=== PATIENT | female | born 1935 | race Caucasian/White ===

== ENCOUNTER 2017-09-15 21:38 | Emergency (ER) | payer OTHER, BC, MEDICARE ==
[~2017-09-15] VITALS: Ht 172.7 cm; Wt 77.1 kg
[2017-09-15 21:52] VITALS: BP 176/76
--- NOTE | 2017-09-15 22:49 | RADIOLOGY REPORT ---
EXAMINATION: XR ANKLE, RIGHT CLINICAL INFORMATION: Fall. Pain. Rule out fracture. COMPARISON: None TECHNIQUE: AP, lateral, and mortise views of the right ankle. FINDINGS: There is lateral ankle soft tissue swelling. The ankle mortise is intact. There is a transverse fracture across the base of the fifth metatarsal bone partially visualized. No dislocation is seen. No ankle joint effusion is visible. IMPRESSION: Lateral ankle soft tissue swelling. Transverse fracture across the base of the fifth metatarsal bone partially visualized.
--- NOTE | 2017-09-15 22:58 | RADIOLOGY REPORT ---
EXAMINATION: XR FOOT, RIGHT CLINICAL INFORMATION: Fall. Pain. COMPARISON: None TECHNIQUE: 3 views of the right foot. FINDINGS: There is a mildly displaced transverse fracture through the proximal fifth metatarsal. The fracture is approximately 1 cm from the tip of the metatarsal area fracture extends to the metatarsal cuboid articulation. There is marked joint space narrowing with prominent bone spur and some remodeling of the first metatarsal tarsal joint. There is a small plantar calcaneal spur. IMPRESSION: Mildly displaced transverse fracture through the proximal fifth metatarsal.
--- NOTE | 2017-09-15 23:01 | RADIOLOGY REPORT ---
EXAMINATION: XR KNEE, RIGHT CLINICAL INFORMATION: Fall. Pain. COMPARISON: None TECHNIQUE: Four views of the right knee. FINDINGS: There is no fracture. No dislocation. No joint effusion. There is joint narrowing of the medial and lateral femoral tibial joint with small spurs at the articular margins of the femur. There is also small spurs of the patella at the lateral femoral joint. There is chondrocalcinosis of the medial and lateral meniscus. IMPRESSION: 1. No acute abnormality. 2. Degenerative joint disease. 3. Chondrocalcinosis.
--- NOTE | 2017-09-15 23:40 | ED MVC/FALL/TRAUMA COMPLAINT ---
History of Present Illness General Chief Complaint: Fall Stated Complaint: PT HAD A FALL ,KNEE,ANKLE, FOOT ON THE RT SIDE Source: patient, old records Exam Limitations: no limitations Vital Signs & Intake/Output Vital Signs & Intake/Output Vital Signs Date Time Temp Pulse Resp B/P B/P Pulse O2 O2 Flow FiO2 Mean Ox Delivery Rate 09/16 2151 97.6 69 18 176/76 97 Room Air ED Intake and Output 09/16 0000 09/15 1200 Intake Total Output Total Balance Patient 170 lb Weight Allergies Coded Allergies: No Known Allergies (09/15/17) Reconcile Medications Oxycodone HCl/Acetaminophen (Percocet 5-325 MG Tablet) 5 MG-325 MG TABLET 1 TAB PO BID FX Triage Note: PT TO TRIAGE S/P MISSING A STEP, TWISTING R ANKLE AND FALLING ONTO R KNEE. C/O R ANKLE, KNEE AND FOOT PAIN. +SWELLING NOTED TO R ANKLE. PT HAS ECCHYMOSIS TO L CHEEK, STATES FROM MECHANICAL FALL 1 WEEK AGO. Triage Nurses Notes Reviewed? yes Onset: Abrupt Duration: hour(s): (2), constant Timing: recent history Severity: moderate Severity Numbers: 8 Injuries/Fall Location: lower extremity Method of Injury: fall Loss of Consciousness: no loss of consciousness Modifying Factors: Worsens With: movement, palpation. Associated Symptoms: DENIES HPI: 82-year-old female on Coumadin for PE hypertension diabetes presents with family for evaluation after she missed a step while walking this evening twisting her right ankle. She now presents complaining of pain to the lateral foot and lateral right knee. She denies hitting her head there is no loss of consciousness. She is not taken anything for her symptoms. The patient had a mechanical fall last week as well at which time she sustained injury to her face and has healing bruising. She denies any prodromal dizziness light tenderness prior to the fall this evening pain is worse with weightbearing and palpation (Thad Celaya) Past History Travel History Traveled to [place] past 21 day No Medical History Any Pertinent Medical History? 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 No (Thad Celaya) Review of Systems Review of Systems Constitutional: Reports: no symptoms, see HPI. Comments Review of systems: See HPI, All other systems negative. Constitutional, no chills no fever, HEENT: no sore throat no congestion Cardiovascular: No chest pain , no palpitation Skin: no rashes, no change in skin Respiratory: No dyspnea no cough no sputum GI: No nausea no vomiting, Muscle skeletal: SEE HPI Neurologic: , no headache Heme/endocrine: No bruising (Thad Celaya) Physical Exam Physical Exam General Appearance: well developed/nourished, no apparent distress, alert Comments: Well-developed well-nourished patient in no apparent distress. HEENT: Healing ecchymosis noted to the inferior left orbit from previous injury, extraocular motion intact Neck: Supple, FROM Back: FROM Respiratory: . No respiratory distress. Patient speaking in full complete sentences. Breath sounds clear to auscultation bilaterally: NO W/R/R Upper Extremities: full range of motion Hip/Pelvis: Atraumatic/Stable. FROM. No pain with pelvic compression Knee: Atraumatic/stable. FROM. No joint swelling, no effusion. No laxity. Negative jorge l/anterior drawer test. pain with ROM Leg: Atraumatic. Nontender. No edema, 5 out of 5 strength in the lower extremity, normal dorsiflexion of great toe bilaterally, gross sensation is intact, patellar tendon reflex 2+ bilaterally. Ankle/Foot: Tenderness of patient over the lateral aspect of the right foot, positive swelling to the foot the ankles atraumatic, Skin intact. Limited range of motion secondary to pain No laxity on exam Pulses: Normal/equal DP/PT pulses bilaterally. Brisk cap refill Neuro: awake, alert, and oriented to person, place and time. There were no obvious focal neurologic abnormalities. Skin: Warm & dry;No appreciable rash on exposed skin Psych: Mood affect normal, normal memory normal judgment. Core Measures ACS in differential dx? No CVA/TIA Diagnosis No Sepsis Present: No Sepsis Focused Exam Completed? No (Thad eClaya) Progress Differential Diagnosis: C/T/L spine injury, ext injury, spinal cord injury, FRACTURE SPRAIN CONTUSION Plan of Care: Orders Procedure Date/time Status Durable Medical Equipment 09/15 2355 Active I discussed with the patient at length all of their results. I had an extensive conversation regarding need for close follow up with their orthopedist this week as well as return precautions. I answered all of their questions, they feel comfortable with the plan and follow-up care. I discussed with the patient/family the medications that they will receive. I gave them signs and symptoms that could indicate an adverse reaction. I have advised them to limit their activities until they can see how they respond to the medication. Diagnostic Imaging: Viewed by Me: Radiology Read. Discussed w/RAD: Radiology Read. (Thad Celaya) Departure Departure Time of Disposition: 2355 Disposition: HOME OR SELF CARE Condition: Stable Clinical Impression Primary Impression: Fracture of 5th metatarsal Referrals: Unknown (PCP/Family) Additional Instructions: Follow-up with your orthopedist when you return home. Pneumatic boot as discussed. Percocet for breakthrough pain- use caution this will make you drowsy. rest, ice, keep leg elevated. return with any concerns Departure Forms: Customer Survey General Discharge Information Prescriptions: Current Visit Scripts Oxycodone HCl/Acetaminophen (Percocet 5-325 MG Tablet) 1 TAB PO BID #15 TAB (Thad Celaya) PA/SERVICE CENTER ASSISTANT Co-Sign Statement Statement: ED Attending supervision documentation- [X] I saw and evaluated the patient. I have also reviewed all the pertinent lab results and diagnostic results. I agree with the findings and the plan of care as documented in the PA's/SERVICE CENTER ASSISTANT's documentation. [X] I have reviewed the ED Record and agree with the PA's/SERVICE CENTER ASSISTANT's documentation. [] Additions or exceptions (if any) to the PAs/SERVICE CENTER ASSISTANT's note and plan are summarized below: [] (Betty SOTELO,Ceferino Rueda) Procedures Splinting Location: RLE Manual Alignment Performed: No Pre-Made Type: velcro Splint: posterior walking Splint Applied By: splint applied by me Pre-Proc Neuro Vasc Exam: normal Post-Proc Neuro Vasc Exam: normal (Thad Celaya)
[2017-09-15] MEDS ORDERED: PERCOCET 5-3251 EACH PO ×3 (23:57→23:59)
== END 2017-09-16 00:20 ==
LOC: ERH 21:38
DX: S92.351A Displaced fracture of fifth metatarsal bone, right foot, initial encounter for closed fracture (principal); Z79.01 Long term (current) use of anticoagulants; X58.XXXA Exposure to other specified factors, initial encounter; Y92.9 Unspecified place or not applicable; Y93.9 Activity, unspecified
CPT/HCPCS: 73562-RT; 73610-RT; 73630-RT